=== PATIENT | male | born 1965 | race Caucasian/White ===

== ENCOUNTER 2021-08-09 20:05 | Emergency (ER) | payer OTHER ==
[~2021-08-09 20:05] MED LIST: BUPR150T2 PO; BUPR75 PO; Bactrim Ds Tab1 EACH PO; CHLO25 PO; DIAZ10 PO; ESOM20 PO; ESZO1 PO; HYDACE10B PO; HYDACE5 PO; IBUP600 PO; IBUP800 PO; LORA1 PO; METH10 PO; Naprosyn500 MG PO; OLAN10 PO; OLAN10A MM; PENVK500 PO; TRAM50 PO; TRIF2 PO; Valium5 MG PO; Zithromax250 MG PO; Zyprexa10 MG; Zyprexa20 MG PO
== END 2021-08-09 21:03 | disposition left against medical advice (07) ==
LOC: ER 20:05
DX: Z53.21 Procedure and treatment not carried out due to patient leaving prior to being seen by health care provider (principal)

== ENCOUNTER 2021-08-09 22:12 | Emergency (ER) | payer OTHER ==
[~2021-08-09] VITALS: Ht 182.9 cm; Wt 81.7 kg
== END 2021-08-10 01:20 | disposition home or self-care (01) ==
LOC: ER 22:12
DX: F10.129 Alcohol abuse with intoxication, unspecified (principal); Z88.8 Allergy status to other drugs, medicaments and biological substances; F20.9 Schizophrenia, unspecified; F17.210 Nicotine dependence, cigarettes, uncomplicated; Z79.899 Other long term (current) drug therapy
CPT/HCPCS: 99282

== ENCOUNTER 2021-08-10 18:09 | Emergency (ER) | payer OTHER | END 2021-08-10 18:23 | disposition left against medical advice (07) | LOC: ER 18:09 | DX: Z53.21 Procedure and treatment not carried out due to patient leaving prior to being seen by health care provider (principal) ==

== ENCOUNTER 2021-08-10 23:13 | Emergency (ER) | payer OTHER ==
[~2021-08-10] VITALS: Ht 182.9 cm; Wt 81.7 kg
== END 2021-08-11 00:59 | disposition left against medical advice (07) ==
LOC: ER 23:13
DX: Z53.21 Procedure and treatment not carried out due to patient leaving prior to being seen by health care provider (principal)

== ENCOUNTER 2021-08-11 05:51 | Emergency (ER) | payer OTHER ==
[~2021-08-11] VITALS: Ht 182.9 cm; Wt 68.0 kg
== END 2021-08-11 06:43 | disposition home or self-care (01) ==
LOC: ER 05:51
DX: F10.10 Alcohol abuse, uncomplicated (principal); F17.210 Nicotine dependence, cigarettes, uncomplicated
CPT/HCPCS: 99284

== ENCOUNTER → 2024-05-06 | Outpatient (CLI) | payer OTHER ==
[2024-05-08 12:21] LABS: Stool Occult Bld Immuno 1 Negative (NEGATIVE)
== END | disposition home or self-care (01) ==
LOC: LAB EV 12:00
PROVIDERS: Family Medicine
DX: Z12.11 Encounter for screening for malignant neoplasm of colon (principal)
CPT/HCPCS: G0328

== ENCOUNTER 2024-06-14 10:34 | Emergency (ER) | payer OTHER ==
[~2024-06-14] VITALS: Ht 182.9 cm; Wt 108.9 kg
[2024-06-14 10:52] VITALS: BP 137/86
[2024-06-14] MEDS ORDERED: Seroquel Xr50 MG PO (10:55)
[2024-06-14] MEDS ORDERED: MIRTAZAPINE7.5 M1 PO (10:56)
[2024-06-14] MEDS ORDERED: Lidocaine 4% 1 Patch TOP ONE (11:20)
[2024-06-14] MEDS ORDERED: Ketorolac Tromethamine 30mg Vial IM ONE (11:20)
[2024-06-14] MEDS ORDERED: Methocarbamol 500 MG Tab PO ONE (11:20)
[2024-06-14] MEDS ORDERED: IBUP800 PO (11:20)
[2024-06-14] MEDS ORDERED: LIDO700A20 TOP (11:20)
[2024-06-14] MEDS ORDERED: Robaxin750 MG PO (11:20)
== END 2024-06-14 11:30 | disposition home or self-care (01) ==
LOC: ER 10:34
DX: M54.50 Low back pain, unspecified (principal); Z88.8 Allergy status to other drugs, medicaments and biological substances; Z79.899 Other long term (current) drug therapy; F17.210 Nicotine dependence, cigarettes, uncomplicated
CPT/HCPCS: 96372; 99283-25; A9270; J1885

== ENCOUNTER → 2024-10-20 | Outpatient (CLI) | payer OTHER ==
[~2024-10-20] MED LIST changes: +LIDO700A20 TOP; +MIRTAZAPINE7.5 M1 PO; +Robaxin750 MG PO; +Seroquel Xr50 MG PO
== END | disposition home or self-care (01) ==
LOC: LAB SHORT 16:34 → LAB 16:34
DX: N40.2 Nodular prostate without lower urinary tract symptoms (principal); R97.20 Elevated prostate specific antigen [PSA]
CPT/HCPCS: 87086

== ENCOUNTER 2024-11-07 12:51 | Emergency (ER) | payer OTHER ==
[~2024-11-07] VITALS: Ht 170.2 cm; Wt 104.3 kg
[2024-11-07 13:49] VITALS: BP 122/92
[2024-11-07 14:16] LABS: BASOPHILS ABSOLUTE AUTO 0.08 K/mm3 (0.00-0.23); BASOPHILS PERCENT AUTO 1 % (0-2); EOSINOPHILS PERCENT AUTO 4 % (0-6); Hematocrit 44.5 % (37.0-53.0); Hemoglobin 15.7 g/dL (13.5-17.5); IMMATURE GRAN ABSOLUTE AUTO 0.03 K/mm3 (0.00-0.10); IMMATURE GRAN PERCENT AUTO 0 % (0-1); LYMPHOCYTES ABSOLUTE AUTO 2.25 K/mm3 (0.84-5.20); LYMPHOCYTES PERCENT AUTO 27 % (21-46); MONOCYTES ABSOLUTE AUTO 0.47 K/mm3 (0.16-1.47); MONOCYTES PERCENT AUTO 6 % (4-13); Mean Corpuscular HGB Conc 35.3 g/dL (31.5-36.5); Mean Corpuscular Volume 88 fL (80-100); Mean Platelet Volume 11.5 fL (9.1-12.4); NEUTROPHILS ABSOLUTE AUTO 5.32 K/mm3 (1.96-9.15); NEUTROPHILS PERCENT AUTO 63 % (41-73); Platelet Count 123 K/mm3 (150-400); RDW Coefficient Variation 13.3 % (11.7-14.2); RDW Standard Deviation 43.1 fL (35.1-46.3); Red Blood Cell Count 5.07 M/mm3 (4.30-5.90); White Blood Cell Count 8.45 K/mm3 (4.00-11.30)
[2024-11-07 14:33] LABS: Albumin, Blood 3.8 g/dL (3.4-5.0); Albumin/Globulin Ratio 0.9 (0.8-1.8); Bilirubin, Total 0.5 mg/dL (0.1-1.0); Bun/Creatinine Ratio 12.5 (12.0-20.0); Calcium, Blood 9.5 mg/dL (8.5-10.1); Creatinine, Blood 0.72 mg/dL (0.60-1.20); Globulin, Blood 4.2 g/dL (2.2-4.0); Potassium, Blood 3.6 mmol/L (3.5-5.5)
== END 2024-11-07 14:31 | disposition left against medical advice (07) ==
LOC: ER 12:51
PROVIDERS: Physician Assistant
DX: R07.9 Chest pain, unspecified (principal); Z53.21 Procedure and treatment not carried out due to patient leaving prior to being seen by health care provider
CPT/HCPCS: 80053; 83690; 84484; 85025; 93005; 93010

== ENCOUNTER → 2025-01-27 | Outpatient (CLI) | payer OTHER ==
[2025-01-27 16:18] LABS: BASOPHILS ABSOLUTE AUTO 0.08 K/mm3 (0.00-0.23); BASOPHILS PERCENT AUTO 1 % (0-2); EOSINOPHILS ABSOLUTE AUTO 0.32 K/mm3 (0.00-0.68); EOSINOPHILS PERCENT AUTO 3 % (0-6); Hematocrit 43.5 % (37.0-53.0); Hemoglobin 15.1 g/dL (13.5-17.5); IMMATURE GRAN ABSOLUTE AUTO 0.04 K/mm3 (0.00-0.10); IMMATURE GRAN PERCENT AUTO 0 % (0-1); LYMPHOCYTES ABSOLUTE AUTO 2.41 K/mm3 (0.84-5.20); LYMPHOCYTES PERCENT AUTO 24 % (21-46); MONOCYTES ABSOLUTE AUTO 0.68 K/mm3 (0.16-1.47); MONOCYTES PERCENT AUTO 7 % (4-13); Mean Corpuscular HGB 29.8 pg (26.0-34.0); Mean Corpuscular HGB Conc 34.7 g/dL (31.5-36.5); Mean Corpuscular Volume 86 fL (80-100); Mean Platelet Volume 11.2 fL (9.1-12.4); NEUTROPHILS ABSOLUTE AUTO 6.62 K/mm3 (1.96-9.15); NEUTROPHILS PERCENT AUTO 65 % (41-73); Platelet Count 129 K/mm3 (150-400); RDW Coefficient Variation 13.8 % (11.7-14.2); RDW Standard Deviation 42.7 fL (35.1-46.3); Red Blood Cell Count 5.07 M/mm3 (4.30-5.90); White Blood Cell Count 10.15 K/mm3 (4.00-11.30)
[2025-01-27 16:26] LABS: Albumin, Blood 3.9 g/dL (3.4-5.0); Bilirubin, Total 0.6 mg/dL (0.1-1.0); Bun/Creatinine Ratio 10.6 (12.0-20.0); Calcium, Blood 8.8 mg/dL (8.5-10.1); Creatinine, Blood 0.94 mg/dL (0.60-1.20); Globulin, Blood 4.1 g/dL (2.2-4.0); Potassium, Blood 3.3 mmol/L (3.5-5.5)
== END ==
LOC: LAB SHORT 16:10 → LAB 16:10
PROVIDERS: Physician Assistant
DX: R10.9 Unspecified abdominal pain (principal)
CPT/HCPCS: 80053; 83690; 85025

== ENCOUNTER 2025-02-25 00:52 | Inpatient (IN) | payer OTHER ==
[~2025-02-25] VITALS: Ht 172.7 cm; Wt 103.6 kg
[2025-02-25] VITALS (22 sets, daily range): BP systolic 102–179; BP diastolic 63–98
[2025-02-25 02:10] LABS: BASOPHILS ABSOLUTE AUTO 0.05 K/mm3 (0.00-0.23); BASOPHILS PERCENT AUTO 0 % (0-2); EOSINOPHILS ABSOLUTE AUTO 0.17 K/mm3 (0.00-0.68); EOSINOPHILS PERCENT AUTO 1 % (0-6); Hematocrit 45.1 % (37.0-53.0); Hemoglobin 15.7 g/dL (13.5-17.5); IMMATURE GRAN ABSOLUTE AUTO 0.08 K/mm3 (0.00-0.10); IMMATURE GRAN PERCENT AUTO 1 % (0-1); LYMPHOCYTES ABSOLUTE AUTO 1.29 K/mm3 (0.84-5.20); LYMPHOCYTES PERCENT AUTO 10 % (21-46); MONOCYTES ABSOLUTE AUTO 0.57 K/mm3 (0.16-1.47); MONOCYTES PERCENT AUTO 5 % (4-13); Mean Corpuscular HGB 29.6 pg (26.0-34.0); Mean Corpuscular HGB Conc 34.8 g/dL (31.5-36.5); Mean Corpuscular Volume 85 fL (80-100); Mean Platelet Volume 10.8 fL (9.1-12.4); NEUTROPHILS ABSOLUTE AUTO 10.55 K/mm3 (1.96-9.15); NEUTROPHILS PERCENT AUTO 83 % (41-73); Platelet Count 114 K/mm3 (150-400); RDW Coefficient Variation 13.9 % (11.7-14.2); RDW Standard Deviation 42.7 fL (35.1-46.3); Red Blood Cell Count 5.31 M/mm3 (4.30-5.90); White Blood Cell Count 12.71 K/mm3 (4.00-11.30)
[2025-02-25 02:37] LABS: Albumin, Blood 3.7 g/dL (3.4-5.0); Albumin/Globulin Ratio 0.8 (0.8-1.8); Bun/Creatinine Ratio 12.6 (12.0-20.0); Calcium, Blood 8.5 mg/dL (8.5-10.1); Creatinine, Blood 0.96 mg/dL (0.60-1.20); Globulin, Blood 4.5 g/dL (2.2-4.0); Potassium, Blood 3.8 mmol/L (3.5-5.5); Total Protein, Blood 8.2 g/dL (6.4-8.2)
[2025-02-25] MEDS ORDERED: NS 1,000 ML IV SCH ×2 (04:55→07:50)
[2025-02-25] MEDS ORDERED: FentaNYL Citrate 50 MCG/ML 2 ML Injection IV PRN ×3 (04:55→11:40)
[2025-02-25] MEDS ORDERED: Ondansetron HCl 2 MG / ML 2ML Vial IV ONE (04:55)
[2025-02-25 05:06] LABS: Source, Urine Clean Catch
[2025-02-25 05:26] LABS: Appearance, Urine Clear (Clear); Blood, Urine 2+ (Neg); Color, Urine Amber (P-Yellow); Glucose Qualitative, Urine 4+ (Neg); Ketones, Urine 3+ (Neg); Leukocyte Esterase, Urine 1+ (Neg); Nitrite, Urine Pos (Neg); Protein, Urine 3+ (Neg); Urobilinogen, Urine 1+ (Normal)
[2025-02-25 05:27] LABS: Bilirubin, Urine 1+ (Neg)
[2025-02-25 05:33] LABS: Bacteria Many /hpf; Mucus Light (0-Heavy); Squamous Epithelial Cells Many /hpf (Few)
[2025-02-25] MEDS ORDERED: Ampicillin Sod/Sulbactam Sod 3 GM in NS 100 ML IV ONE (05:35)
[2025-02-25] MEDS ORDERED: LORazepam 2 MG/ML 1ML Injection IV ONE (07:40)
[2025-02-25] MEDS ORDERED: Ondansetron HCl 2 MG / ML 2ML Vial IV PRN ×2 (07:50→11:45)
[2025-02-25] MEDS ORDERED: Morphine Sulfate 4 MG/1 ML Injection IV PRN (10:10)
[2025-02-25] MEDS ORDERED: Lactated Ringer's 1,000 ML IV SCH (10:20)
--- NOTE | 2025-02-25 11:05 | NUR ---
FLUSHED 18G RAC IV SITE WITH 10NS/PATENT.
[2025-02-25] MEDS ORDERED: Ampicillin Sod/Sulbactam Sod 3 GM ONE (11:15)
[2025-02-25] MEDS ORDERED: OLAN10 PO (11:20)
[2025-02-25] MEDS ORDERED: Bupivacaine 0.5% HCl 5 MG/ML 30MLVIAL ONE (11:24)
[2025-02-25] MEDS ORDERED: Ipratropium/Albuterol SulF 2.5-0.5MG/3 ML Amp ONE (11:24)
[2025-02-25] MEDS ORDERED: Ipratropium/Albuterol SulF 2.5-0.5MG/3 ML Amp INH ONE (11:25)
[2025-02-25] MEDS ORDERED: FentaNYL Citrate 50 MCG/ML 5 ML Injection ONE (11:34)
[2025-02-25] MEDS ORDERED: Rocuronium Bromide 10 MG/ML 5ML Injection IV ONE (11:34)
[2025-02-25] MEDS ORDERED: propofoL 20 ML IV ONE (11:34)
[2025-02-25] MEDS ORDERED: HYDROmorphone HCl/Pf 1MG SYR IV PRN ×2 (11:35→11:40)
[2025-02-25] MEDS ORDERED: Ondansetron HCl 2 MG / ML 2ML Vial ONE (11:37)
[2025-02-25] MEDS ORDERED: Ketorolac Tromethamine 30mg Vial ONE (11:37)
[2025-02-25] MEDS ORDERED: Metoclopramide HCl 5MG / ML 2ML Vial ONE (11:37)
[2025-02-25] MEDS ORDERED: Albuterol 2.5 MG/3 ML VIAL INH PRN (11:40)
[2025-02-25] MEDS ORDERED: Metoclopramide HCl 5MG / ML 2ML Vial IV PRN (11:40)
[2025-02-25] MEDS ORDERED: LORazepam 2 MG/ML 1ML Injection IV PRN (11:40)
[2025-02-25] MEDS ORDERED: Labetalol HCL 5 MG/ML 4ML Injection (Single Dose) IV PRN (11:40)
[2025-02-25] MEDS ORDERED: Atropine Sulfate 0.1 MG/ML 10ML SYR IV PRN (11:45)
[2025-02-25] MEDS ORDERED: Ketorolac Tromethamine 15mg Vial IV PRN (11:55)
[2025-02-25] MEDS ORDERED: Ampicillin Sod/Sulbactam Sod 3 GM in NS 100 ML IV SCH (12:00)
[2025-02-25] MEDS ORDERED: HYDROmorphone HCl/Pf 1MG SYR ONE (13:24)
[2025-02-25] MEDS ORDERED: HYDROcodone 5-APAP 325 TAB PO PRN (13:40)
[2025-02-25] MEDS ORDERED: Acetaminophen 650 MG Supp PR ONE (14:05)
[2025-02-25] MEDS ORDERED: Folic Acid 1 MG in NS 50 ML IV SCH (16:00)
[2025-02-25] MEDS ORDERED: Thiamine HCl 100 MG in NS 50 ML IV SCH (16:00)
--- NOTE | 2025-02-25 18:45 | NUR ---
Summary: Patient POD 0 for lap appendectomy. Arrived to the unit at approximately 1500 with no complaints of pain. Abdominal surgical sites include 3 laproscopic sites with gauze and tegaderm covering, 1 SAMMY drain on left side of abdomen, draining well-serosanguinous. Pain managed, per meds in emar. Sinus tachycardia, lung sounds clear to auscultation, hypoactive bowel sounds with moderate distention. Has not urinated in 4 hours, attempted x3 to get up to bedside with urinal. Education given on incentive spirometer with demonstration done by patient.
--- NOTE | 2025-02-25 19:34 | NUR ---
SUMMARY: PT IS POD0 LAP APPY. SURGICAL SITE INTACT. INCISION AT [facility] HAS SS DRAINAGE BUT IS DRY. SAMMY HAS NEEDED TO BE EMPTIED MULTIPLE TIMES, SEE CHARTING. THERE IS DRAINAGE AROUND SAMMY INSERTION SITE NOTED SAMMY CONDE COMPRESSED. BEULAH BUSTOS AWARE. PT IS ANSWERING QUESTIONS AND FOLLOWING COMMANDS. AWAITING POST OP VOID, BLADDER SCAN PRN. ANTIBIOTICS INFUSED AND PAIN APPEARS TO BE WELL MANAGED. VSS AND PT USING CALL LIGHT. BED ALARM ON FOR SAFETY, NO SIGNS OF ETOH WITHDRAWAL AT THIS TIME. REPORT PASSED TO BEULAH BUSTOS BY ESPERANZA WALLACE STUDENT.
[2025-02-25] MEDS ORDERED: Lactobacil 2-S.Thermo-Bifido 1 1 Cap PO SCH (21:00)
--- NOTE | 2025-02-25 21:22 | NUR ---
SAMMY DRAIN: PER REP PT GOT UP OOB AND DRAIN WAS PULLED. DRAIN NO LONGER HOLDING SX, SUTURES VISIBLE ON MID LENGTH OF TUBING. DR MARK UPDATED, NO NEW ORDERS. PRIMARY RN AWARE.
--- NOTE | 2025-02-25 23:00 | NUR ---
UPDATE SAMMY 6X9 EXU DRY DRESSING SATURATED AND LEAKING SS FLUID ONTO GOWN/LOWERY PAD AT THIS TIME. DRESSING APPLIED TO REINFORCE PRIMARY PLACED DURING SURGERY TODAY. EXU DRY REMOVED, SKIN SURROUNDING CLEANS WITH NS AND GAUZE, THEN REPLACED WITH NEW 6X9 EXU DRY AND MEDIPORT TAPE TO SECURE IN PLACE. NEW GOWN AND LOWERY PAD REPLACED. 2X2'S PLACED UNDER EXU DRY AGAINST TUBING AT INSERTION TO HELP WITH DRAINAGE. SAMMY NONCOMPRESSABLE, NO DRAINAGE IN BULB- PROVIDER AWARE. LAP ABD INCISIONS CDI, NO DRAINAGE OR REDNESS NOTED. UMBILICAL DRESSING, GAUZE AND TEGADERM, IN PLACE WITH NO CHANGE TO SS DRAINAGE. ABD MORE DISTENDED. PT STANDS AT BEDSIDE TO VOID IN URINAL WITH ASSISTANCE. DECLINES AMBULATION. IVF AND ABX INFUSING PER ORDERS. MEDICATED PER EMAR FOR INCREASED ABD PAIN. JAIME CL PO INTAKE, DENIES N/V. HAS CALL LIGHT AND ABLE TO MAKE NEEDS KNOWN. BED ALARM ON FOR SAFETY
[2025-02-25] MEDS ORDERED: OLANZapine 10 MG Tab PO SCH (23:05)
[2025-02-25] MEDS ORDERED: QUEtiapine Fumarate 300 MG Tab PO SCH (23:05)
[2025-02-26 00:08] VITALS: BP 116/83
[2025-02-26 03:53] VITALS: BP 110/73
--- NOTE | 2025-02-26 04:00 | NUR ---
UPDATE 100ML OF GREEN EMESIS NOTED. PT MEDICATED PER EMAR FOR N/V POST PO PAIN MEDICATION ADMINISTRATION. COOL CLOTH AND ICE WATER PROVIDED. IVF INFUSING PER ORDERS. PT REPORTS FEELING MORE DISTENDED AND SWOLLEN; INCREASED ABD DISTENTION NOTED. LUNG SOUNDS CL, DEMINISHED AT BASES. EXU DRY DRESSING TO SAMMY INSERTION CDI. IS A/OX4 WITH VSS ON 1L NC. DENIES SOB, CP, OR PRESSURE. PT DENIES ADDITIONAL NEEDS. HAS CALL LIGHT IN REACH AND ABLE TO MAKE NEEDS KNOWN.
[2025-02-26 06:43] LABS: Hematocrit 39.7 % (37.0-53.0); Hemoglobin 13.5 g/dL (13.5-17.5); Mean Corpuscular HGB 29.5 pg (26.0-34.0); Mean Corpuscular Volume 87 fL (80-100); Mean Platelet Volume 11.6 fL (9.1-12.4); Platelet Count 78 K/mm3 (150-400); RDW Coefficient Variation 14.4 % (11.7-14.2); RDW Standard Deviation 46.2 fL (35.1-46.3); Red Blood Cell Count 4.57 M/mm3 (4.30-5.90); White Blood Cell Count 8.07 K/mm3 (4.00-11.30)
[2025-02-26 07:01] LABS: Bun/Creatinine Ratio 9.7 (12.0-20.0); Calcium, Blood 7.8 mg/dL (8.5-10.1); Creatinine, Blood 0.83 mg/dL (0.60-1.20); Potassium, Blood 3.9 mmol/L (3.5-5.5)
[2025-02-26 07:07] LABS: BAND PERCENT MAN 10 % (0-8); BASOPHILS ABSOLUTE MAN 0.08 K/mm3 (0.00-0.23); BASOPHILS PERCENT MAN 1 % (0-2); EOSINOPHILS PERCENT MAN 0 % (0-6); LYMPHOCYTES ABSOLUTE MAN 0.64 K/mm3 (0.84-5.20); LYMPHOCYTES PERCENT MAN 8 % (21-46); MONOCYTES ABSOLUTE MAN 0.24 K/mm3 (0.16-1.47); MONOCYTES PERCENT MAN 3 % (4-13); SEG NEUTROPHILS PERCENT MAN 78 % (41-73); TOTAL CELLS COUNTED 100
[2025-02-26 07:41] VITALS: BP 139/96
[2025-02-26] MEDS ORDERED: Calcium Carbonate 500 MG Tab Chew PO PRN (12:30)
[2025-02-26] MEDS ORDERED: Enoxaparin 40 MG/0.4 ML SYR SC SCH (14:00)
[2025-02-26 14:31] VITALS: BP 105/77
--- NOTE | 2025-02-26 15:56 | NUR ---
SHIFT SUMMARY POD [address] MARK REMOVED SAMMY DRAIN AND CHANGED GAUZE DRESSINGS TO ABD. HAVE REMAINED CDI. ABD STILL MODERATELY DISTENDED. DENIES FLATUS. SLOWLY JAIME CLEAR LIQS, BUT DOES GET INTERMITTENTLY NAUSEATED. NO EMESIS THIS SHIFT. AMBULATING HALLWAY X2 WITH SBA. 2 PAIN PILLS FOR PAIN CONTROL. PT CAN BE GROGGY AT TIMES, BUT OTHERWISE ORIENTED X4. USES CALL LIGHT APPROPRIATELY.
[2025-02-26 19:32] VITALS: BP 130/91
[2025-02-26 20:35] LABS: Base Excess Venous 5.3 mmol/L; Bicarbonate Venous 28.5 mmol/L (24.0-30.0); PCO2 Venous 43.8 mmHg (38-42); pH Blood Venous 7.44 (7.34-7.37)
[2025-02-26 23:37] VITALS: BP 134/83
[2025-02-27] MEDS ORDERED: Acetaminophen 325 MG TABLET PO PRN (02:10)
[2025-02-27 02:29] LABS: PCO2 Venous 34.7 mmHg (38-42); pH Blood Venous 7.52 (7.34-7.37)
--- NOTE | 2025-02-27 02:36 | NUR ---
PT BECOMING A BIT ALTERED AND SLURRING SPEECH A BIT MORE. EQUAL ARROW POINT ATTACHER AND NO FACIAL DEFICITS NOTED. PT STILL ABLE TO STATE HIS NAME, , MONTH AND YEAR, AND KNOWS HE'S AT [facility], HIS RESPONSES ARE JUST A BIT SLOWER WITH CHANGES IN SPEECH. PT WAS ON PHONE WITH HIS ON SPEAKER AND SHE ALSO STATED HIS SPEECH IS MORE SLURRED. DAY SHIFT RN MENTIONED THAT PT HAD PROGRESSIVELY ADVANCED IN THIS WAY THROUGH THE DAY. VBG ORDERED AT THAT TIME. CALLED DR MARVEL CONDE TO UPDATE HIM ON PT'S STATUS, RECEIVED ORDER FOR REPEAT VBG WELL TYLENOL FOR PAIN AND PEPCID FOR HEARTBURN WHICH IS PT'S MAIN COMPLAINT RIGHT NOW. THESE NEW SYMPTOMS DID SEEM TO INCREASE AFTER PT RECEIVED HIS SCHEDULED ZYPREXA AND SEROQUEL HOWEVER PT AND HIS DID SAY THAT HE TAKES THOSE NORMALLY EACH DAY WITH NO ISSUES AND PT HAS NOT HAD ANY NARCOTICS SINCE EARLY SUNDAY MORNING. WILL CONTINUE TO MONITOR.
[2025-02-27 02:49] LABS: BASOPHILS ABSOLUTE AUTO 0.03 K/mm3 (0.00-0.23); BASOPHILS PERCENT AUTO 0 % (0-2); EOSINOPHILS ABSOLUTE AUTO 0.06 K/mm3 (0.00-0.68); EOSINOPHILS PERCENT AUTO 1 % (0-6); Hematocrit 37.2 % (37.0-53.0); Hemoglobin 12.7 g/dL (13.5-17.5); IMMATURE GRAN PERCENT AUTO 1 % (0-1); LYMPHOCYTES ABSOLUTE AUTO 0.53 K/mm3 (0.84-5.20); LYMPHOCYTES PERCENT AUTO 7 % (21-46); MONOCYTES ABSOLUTE AUTO 0.42 K/mm3 (0.16-1.47); MONOCYTES PERCENT AUTO 5 % (4-13); Mean Corpuscular HGB 29.7 pg (26.0-34.0); Mean Corpuscular HGB Conc 34.1 g/dL (31.5-36.5); Mean Corpuscular Volume 87 fL (80-100); NEUTROPHILS ABSOLUTE AUTO 7.01 K/mm3 (1.96-9.15); NEUTROPHILS PERCENT AUTO 86 % (41-73); Platelet Count 75 K/mm3 (150-400); RDW Coefficient Variation 14.3 % (11.7-14.2); RDW Standard Deviation 45.8 fL (35.1-46.3); Red Blood Cell Count 4.28 M/mm3 (4.30-5.90); White Blood Cell Count 8.15 K/mm3 (4.00-11.30)
[2025-02-27] MEDS ORDERED: Famotidine 20 MG Tab PO SCH (03:00)
[2025-02-27 03:05] LABS: Bun/Creatinine Ratio 11.5 (12.0-20.0); Creatinine, Blood 0.78 mg/dL (0.60-1.20); Potassium, Blood 3.5 mmol/L (3.5-5.5)
--- NOTE | 2025-02-27 03:08 | NUR ---
NOTIFIED DR GRIER OF VBG RESULTS. NO ADDITIONAL ORDERS AT THIS TIME AND SAID JUST CONTINUE TO MONITOR AND IF SYMPTOMS INCREASE TO UPDATE HIM AT THAT TIME. PT'S BROUGHT IN HOME MEDS AND STATED HE TAKES PANTOPRAZOLE EVERY MORNING SO RECEIVED ORDER TO START THAT IN THE MORNING PT CONTINUES TO COMPLAIN OF HEARTBURN.
[2025-02-27] MEDS ORDERED: PANT20 PO (04:11)
[2025-02-27 04:43] VITALS: BP 155/95
--- NOTE | 2025-02-27 05:11 | NUR ---
BELT BUCKLE MAKER SUMMARY PT HAS CONTINUED TO BE A BIT OUT OF IT TONIGHT WITH SOME SLIGHT INCREASE IN SLURRED SPEECH, SEE PREVIOUS NOTES. PT HAS GOTTEN OUT OF BED A COUPLE TIMES AND HAS VOIDED BUT STILL DENIES PASSING GAS OR HAVING A BM. PT DENIES WANTING TO TAKE NARCOTICS FOR ABD PAIN BECAUSE HE SAID HE FEELS IT HAS CONTRIBUTED TO HIS CONFUSION TODAY. GOT AN ORDER FOR TYLENOL WELL FOR PANTOPRAZOLE AND PEPCID FROM HOSPITALIST PT HAS BEEN MOSTLY COMPLAINING OF ACID REFLUX. MEDICATED FOR NAUSEA ONCE THIS MORNING BUT PT NEVER ACTUALLY VOMITED, JUST A BIT OF SPUTUM WITH SOME OF THE CRANBERRY JUICE HE HAD EARLIER. VITALS HAVE BEEN STABLE. DR GRIER AWARE OF CHANGES MENTIONED ABOVE AND WANTS TO CONTINUE TO MONITOR AT THIS POINT UNLESS SYMPTOMS BECOME WORSE.
[2025-02-27] MEDS ORDERED: Pantoprazole Sodium 20 MG Tab PO SCH (06:00)
[2025-02-27 07:29] VITALS: BP 149/84
[2025-02-27] MEDS ORDERED: Bisacodyl 10 MG Supp PR PRN (08:15)
[2025-02-27] MEDS ORDERED: Thiamine HCl 100 MG Tab PO SCH (09:00)
[2025-02-27] MEDS ORDERED: Folic Acid 1 MG TAB PO SCH (09:00)
[2025-02-27] MEDS ORDERED: TPN Consult Notification XX ONE (11:00)
[2025-02-27] MEDS ORDERED: Ketorolac Tromethamine 15mg Vial IV PRN (11:10)
[2025-02-27 14:51] VITALS: BP 118/81
[2025-02-27] MEDS ORDERED: Parenteral Electolytes 40 ML,Potassium Phosphate Dibasic 30 MM,Multivitamins 10 ML,Thia... IV SCH (17:00)
--- NOTE | 2025-02-27 17:10 | NUR ---
SHIFT SUMMARY POD 2 LAP APPY. LAP SITES TO ABD ARE CDI. NGT PLACED THIS MORNING TO LIS. DARK GREEN/BROWN DRAINAGE IN CANISTER. PT STILL MODERATELY TO SEVERELY DISTENDED, BUT DOES REPORT FEELING LESS PRESSURE IN HIS ABD, LESS NASUEATED, AND NOT PAINFUL. DENIES FLATUS. BTS STILL HYPOACTIVE. NPO WITH OCCASSIONAL ICE CHIPS. TORADOL GIVEN X1 FOR PAIN CONTROL. UP TO RESTROOM WITH SBA AND ALSO SHOWERED TODAY. CONT IVF + ABX AND PLANNING TO START PPN PER ORDERS. PT LESS GROGGY THIS AFTERNOON AND THE SPOUSE REPORTED THAT HE APPEARED MUCH BETTER AND MORE COMFORTABLE. CALL LIGHT WITHIN REACH.
--- NOTE | 2025-02-27 18:14 | NUR ---
AGREE WITH TAPE STRINGER DOCUMENTATION.
[2025-02-27 19:21] VITALS: BP 126/88
--- NOTE | 2025-02-27 20:57 | NUR ---
Pt declined shower as they had already showed today. Pt also declined oral care, even after the importance of oral care had be explained.
--- NOTE | 2025-02-27 23:25 | NUR ---
PROGRESS NOTE. THIS RN CALLED TO PT ROOM BY PT AND BLOCKMAN. PT REPORTED SX OF "RACING HEART". HEART RATE 91 BPM, BP 127/91, OTHER VSS. PT VERBALIZED FEELINGS OF ANXIETY AND FRUSTRATION REGARDING NPO STATUS. THIS RN NOTED PT EXIBITING SX OF AGITATION WELL. PT DENIES SOB OR CHEST PAIN/PRESSURE WHEN ASKED. PT VERBALIZED THAT HE HAS BEEN OFF PSYCH MEDS FOR HIS SCHITZOPRENIA D/T NPO STATUS. PT STATES HE HAS A HX OF ANXIETY AND HEART RACING SX ARE SAME PAST ANXIETY EPISODES. EDUCATED PT ON NOTIFYING STAFF IF SX WORSEN OR DO NOT IMPROVE. DISCUSSED WITH WASTE WATER WORKER JOSE GARCÍA. WILL CALL HOSPITALIST WELL.
[2025-02-27 23:26] VITALS: BP 127/91
--- NOTE | 2025-02-27 23:56 | NUR ---
Pt requested to talk to nurse about increase of heart rate and breathing, RN notified, RN in Room following up.
[2025-02-28] MEDS ORDERED: OLANZapine 10 MG Vial IM PRN (00:40)
--- NOTE | 2025-02-28 00:45 | NUR ---
CALL TO HOSPITALIST. CALL PLACED TO HOSPITALIST REGARDING MULTIPLE CONCERNS FOR PT. DISCUSSED PT REPORTED "HEART RACING", AGITATION, AND ANXIETY SX, DISCUSSED FLUID DEFICIT ON I&OS, DISCUSSED REDNESS ON LEFT SIDE ABDOMEN MARKED WITH MARGINS. DISCUSSED PT BEING OFF PSYCH MEDICATIONS D/T NPO STATUS AND NG TUBE. NEW ORDERS RECEIVED FOR ZYPREXA, INCREASE FLUID RATE TO 150ML/HR AND EKG PRN IF HEART RACING SX RETURN.
[2025-02-28] MEDS ORDERED: NS 1,000 ML IV SCH (01:00)
[2025-02-28 02:51] VITALS: BP 121/89
[2025-02-28 04:33] LABS: BASOPHILS ABSOLUTE AUTO 0.04 K/mm3 (0.00-0.23); BASOPHILS PERCENT AUTO 0 % (0-2); EOSINOPHILS ABSOLUTE AUTO 0.41 K/mm3 (0.00-0.68); EOSINOPHILS PERCENT AUTO 4 % (0-6); Hematocrit 35.6 % (37.0-53.0); IMMATURE GRAN ABSOLUTE AUTO 0.09 K/mm3 (0.00-0.10); IMMATURE GRAN PERCENT AUTO 1 % (0-1); LYMPHOCYTES ABSOLUTE AUTO 1.16 K/mm3 (0.84-5.20); LYMPHOCYTES PERCENT AUTO 12 % (21-46); MONOCYTES ABSOLUTE AUTO 0.59 K/mm3 (0.16-1.47); MONOCYTES PERCENT AUTO 6 % (4-13); Mean Corpuscular HGB 29.5 pg (26.0-34.0); Mean Corpuscular HGB Conc 33.7 g/dL (31.5-36.5); Mean Corpuscular Volume 88 fL (80-100); Mean Platelet Volume 11.5 fL (9.1-12.4); NEUTROPHILS ABSOLUTE AUTO 7.72 K/mm3 (1.96-9.15); NEUTROPHILS PERCENT AUTO 77 % (41-73); Platelet Count 100 K/mm3 (150-400); RDW Coefficient Variation 14.3 % (11.7-14.2); RDW Standard Deviation 45.9 fL (35.1-46.3); Red Blood Cell Count 4.07 M/mm3 (4.30-5.90); White Blood Cell Count 10.01 K/mm3 (4.00-11.30)
[2025-02-28 04:52] LABS: Anion Gap 9 mmol/L (3-11); Blood Urea Nitrogen 11 mg/dL (8-24); Bun/Creatinine Ratio 15.2 (12.0-20.0); CO2, Blood 25 mmol/L (21-32); Calcium, Blood 7.9 mg/dL (8.5-10.1); Chloride, Blood 106 mmol/L (98-108); Creatinine, Blood 0.72 mg/dL (0.60-1.20); Glomerular Filtration Rate 105 (60-); Glucose, Blood 118 mg/dL (70-99); Magnesium, Blood 2.1 mg/dL (1.6-2.4); Phosphorus, Blood 1.6 mg/dL (2.5-4.9); Potassium, Blood 3.4 mmol/L (3.5-5.5); Sodium, Blood 137 mmol/L (136-145); Triglycerides 187 mg/dL (30-160)
[2025-02-28] MEDS ORDERED: Pantoprazole Sodium 40 MG Injection IV SCH (06:00)
--- NOTE | 2025-02-28 06:19 | NUR ---
SHIFT SUMMARY NOC. PT POD 3 FOR RUPTURED LAP APPY. PT LAP SITES X4 ARE C/D/I, UMBILICAL SITE DRESSING REPLACED D/T PEELING OFF. NOTED REDNESS ON LEFT SIDE ABDOMEN, MARKED AT START OF SHIFT AND RECEEDING T/O SHIFT, HOSPITALIST NOTIFIED. PT DENIES ITCHING OR PAIN, REDNESS IS NOT RAISED. PT'S PAIN CONTROLLED WITH LIMITED DOSES OF TORADOL, NOW COMPLETED. PT RECEIVED IM INJECTION OF ZYPREXA. PT REPORTED IMPROVEMENT OF ANXIETY AFTER INJECTION. DECREASED AGITATION NOTED BY THIS RN. INCREASED RATE OF NS 150 ML/HR STARTED THIS SHIFT. NG TUBE CONNECTED TO LIS WITH GREEN OUTPUT. PT VOIDING AND NPO ASIDE FROM SCANT QUANTITY OF ICE CHIPS FOR COMFORT. PT REPORTS PASSING GAS THIS SHIFT. CALL LIGHT IN REACH.
[2025-02-28 07:11] VITALS: BP 136/82
--- NOTE | 2025-02-28 08:20 | NUR ---
OFFERED BATH/SHOWER AND BED CHANGE.PATIENT STATED"NOT RIGHT NOW." THIS ZOOKEEPER STATED TO PATIENT. " CALL WHEN READY FOR SHOWER OR BATH."
[2025-02-28] MEDS ORDERED: Potassium Phosphate Dibasic 20 MM in Dextrose 5% 500 ML IV STA (10:28)
[2025-02-28] MEDS ORDERED: Ketorolac Tromethamine 15mg Vial IV PRN (10:30)
[2025-02-28] MEDS ORDERED: DIAZ5 PO (10:45)
[2025-02-28] MEDS ORDERED: NS 250 ML IV PRN (15:05)
--- NOTE | 2025-02-28 15:57 | NUR ---
summary PT WAS AGITATED T/O MORNING. REC'D ZYPREXA IM PER ORDERS AND AGITATION APPEARED TO DECREASE. PT'S REDNESS TO L SIDE/FLANK REPORTED TO DR GABRIEL. PT SAT UP IN CHAIR BRIEFLY THEN ASKED TO RETURN TO BED. BED ALARM ON FOR SAFETY DUE TO PT'S IMPULSIVENESS. RESTING ON R SIDE AT THIS TIME. REPORT GIVEN AND CARE TURNED OVER TO ESPERANZA BLANTON.
[2025-02-28] MEDS ORDERED: Parenteral Electolytes 40 ML,Potassium Phosphate Dibasic 30 MM,Multivitamins 10 ML,Thia... IV SCH (17:00)
[2025-02-28 17:06] VITALS: BP 135/87
[2025-02-28 19:32] VITALS: BP 123/89
--- NOTE | 2025-03-01 | NUR ---
PROGRESS NOTE. PT SET OFF BED ALARM AND HAD PULLED NG TUBE. PT REPORTED HE GOT TANGLED IN HIS CORDS AND THE TUBE WAS PULLED. PT DENIES N/V AND REPORTS FEELING BETTER NOW THAT TUBE IS OUT. PT PASSING GAS. ORDER RECEIVED FROM HOSPITALIST TO KEEP NG OUT UNLESS N/V OCCURS. EDUCATION PROVIDED TO PATIENT TO NOTIFY STAFF FOR N/V SYMPTOMS.
[2025-03-01 02:40] VITALS: BP 140/83
[2025-03-01 06:49] LABS: Magnesium, Blood 2.3 mg/dL (1.6-2.4); Phosphorus, Blood 3.1 mg/dL (2.5-4.9)
[2025-03-01 07:24] VITALS: BP 116/72
--- NOTE | 2025-03-01 07:56 | NUR ---
SHIFT SUMMARY NOC. PT POD 4 FOR RUPTURED LAP APPY. PT LAP SITES X4 ARE C/D/I. REDNESS ON LEFT SIDE ABDOMEN RECEEDING WITHIN MARGINS. PT DENIES N/V OR PAIN THIS SHIFT. PT MEDICATED X1 WITH IM ZYPREXA. NG TUBE PULLED BY PT THIS SHIFT. NO INCREASED DISTENSION NOTED AFTER REMOVAL. PT VOIDING URINE AND TOLERATING ICE CHIPS FOR COMFORT. PT INCONSISTENT WITH CALL LIGHT, SOMETIMES SETS OF BED ALARM, AND SOMETIMES CALLS APPROPRIATELY.
--- NOTE | 2025-03-01 10:13 | NUR ---
PT DENIES N/V, ABD SOFT/NON TENDER W/PALPATION, HAVING MULTIPLE BM, TOLERATING ICE CHIPS. PER DR NERY PINTO TO ADVANCE DIET TO CLEAR LIQUIDS. PT DR SPENCER PINTO TO SALINE LOCK IF ADVANCING DIET.
--- NOTE | 2025-03-01 10:23 | NUR ---
THIS WIRELESS SALES CONSULTANT ENCOURAGED PATIENT TO GET UP TO CHAIR FOR MEAL TIMES.OFFERED A WALK.OFFERED A SHOWER.
[2025-03-01] MEDS ORDERED: Potassium Chloride 20 MEQ TabCR PO ONE (11:00)
[2025-03-01 15:52] VITALS: BP 127/84
--- NOTE | 2025-03-01 16:49 | NUR ---
SHIFT NOTE PT RESTING QUIETLY. 5 LOOSE BM TODAY. HE IS TOLERATING FULL LIQUID DIET. NO NAUSEA OR ABD. CRAMPING. UP SBA FOR CORDS TO BATHROOM. BED ALARM ON. HE REQUESTED ZYPREXA ONCE TODAY. DR GABRIEL ASSESSED PT THIS MORNING. IV X2 WNL. ANTIBIOTICS PER ORDER. DENIED NEED FOR PAIN CONTROL THIS AFTERNOON. CARE ONGOING.
[2025-03-01 20:25] VITALS: BP 129/76
[2025-03-01 23:49] VITALS: BP 117/74
[2025-03-02 03:21] VITALS: BP 125/74
--- NOTE | 2025-03-02 04:28 | NUR ---
SHIFT SUMMARY POD5 LAP APPY. X4 LAP SITES ARE C/D/I. ABD REMAINS DISTENDED, PT ENDORSES FEELING SORE. PASSING FLATTUS, TOLLERATING PO INTAKE W/O N/V. PT SLEPT THE ENTIRE NIGHT, DENIES ANY NEED FOR PAIN MEDICATION. UTILIZED URINAL AT BEDSIDE OR AMBULATED TO THE BATHROOM W/SBA. OVERALL NO ACUTE EVENTS NOTED, PREVIOUS SHIFT RN REPORTS PT NEEDS ENCOURAGEMENT TO GET OOB T/O THE DAY, WILL PASS ONTO ONCOMING SHIFT. THE PATIENT IS CURRENTLY SLEEPING, IN NO DISTRESS, CALL LIGHT IN REACH.
[2025-03-02 05:44] LABS: Magnesium, Blood 2.1 mg/dL (1.6-2.4)
[2025-03-02 06:41] LABS: BASOPHILS PERCENT AUTO 1 % (0-2); EOSINOPHILS PERCENT AUTO 7 % (0-6); Hematocrit 38.7 % (37.0-53.0); Hemoglobin 13.4 g/dL (13.5-17.5); Mean Corpuscular HGB 29.7 pg (26.0-34.0); Mean Corpuscular HGB Conc 34.6 g/dL (31.5-36.5); Mean Corpuscular Volume 86 fL (80-100); Mean Platelet Volume 11.7 fL (9.1-12.4); Platelet Count 167 K/mm3 (150-400); RDW Coefficient Variation 14.5 % (11.7-14.2); RDW Standard Deviation 45.5 fL (35.1-46.3); Red Blood Cell Count 4.51 M/mm3 (4.30-5.90); White Blood Cell Count 9.28 K/mm3 (4.00-11.30)
[2025-03-02 06:43] LABS: IMMATURE GRAN ABSOLUTE AUTO 0.37 K/mm3 (0.00-0.10); IMMATURE GRAN PERCENT AUTO 4 % (0-1); LYMPHOCYTES PERCENT AUTO 26 % (21-46); MONOCYTES ABSOLUTE AUTO 0.86 K/mm3 (0.16-1.47); MONOCYTES PERCENT AUTO 9 % (4-13); NEUTROPHILS ABSOLUTE AUTO 4.95 K/mm3 (1.96-9.15); NEUTROPHILS PERCENT AUTO 53 % (41-73)
[2025-03-02 06:54] LABS: Bun/Creatinine Ratio 12.8 (12.0-20.0); Calcium, Blood 8.3 mg/dL (8.5-10.1); Creatinine, Blood 0.7 mg/dL (0.60-1.20); Potassium, Blood 3.8 mmol/L (3.5-5.5)
[2025-03-02 07:23] VITALS: BP 144/91
--- NOTE | 2025-03-02 15:50 | NUR ---
DISCHARGE SUMMARY PT STATES PAIN TOLERABLE LEVEL. PT A&O X4. PT TOLERATING DIET. PT DENIES N&V. PT STATES LAST BM 03/02/25. INCISIONS CLEAN, DRY, AND INTACT. NO DRAINAGE OR REDNESS OBSERVED. EDUCATION AND DISCHARGE INSTRUCTIONS PROVIDED TO PT AND SIGNIFICANT OTHER. PT AND SIGNIFICANT OTHER DEMONSTRATED UNDERSTANDING OF BOTH. ESCORTED OUT VIA WHEELCHAIR.
== END 2025-03-02 16:00 | disposition home or self-care (01) | DRG 853 ==
LOC: ER 00:52 → SURS 00:53 → ERHOLD 00:53 → SURS 10:52
PROVIDERS: Emergency Medicine; Internal Medicine; Student in an Organized Health Care Education/Training Program; Surgery; ADMIT Family Medicine
PROC: 3E03329 Introduction of Other Anti-infective into Peripheral Vein, Percutaneous Approach (ICD-10-PCS; 2025-02-25)
PROC: 0DTJ4ZZ Resection of Appendix, Percutaneous Endoscopic Approach (ICD-10-PCS; principal; 2025-02-25 11:30)
PROC: 0D9670Z Drainage of Stomach with Drainage Device, Via Natural or Artificial Opening (ICD-10-PCS; 2025-02-27)
PROC: 3E0336Z Introduction of Nutritional Substance into Peripheral Vein, Percutaneous Approach (ICD-10-PCS; 2025-02-27)
DX: A41.9 Sepsis, unspecified organism (principal); K35.211 Acute appendicitis with generalized peritonitis, with perforation and abscess; E87.1 Hypo-osmolality and hyponatremia; K91.89 Other postprocedural complications and disorders of digestive system; K56.7 Ileus, unspecified; F25.9 Schizoaffective disorder, unspecified; G89.29 Other chronic pain; F17.210 Nicotine dependence, cigarettes, uncomplicated; E86.0 Dehydration; M54.50 Low back pain, unspecified; F10.20 Alcohol dependence, uncomplicated; R12 Heartburn; R14.0 Abdominal distension (gaseous); E87.6 Hypokalemia; D69.6 Thrombocytopenia, unspecified; Z98.890 Other specified postprocedural states; Z88.8 Allergy status to other drugs, medicaments and biological substances; Z79.899 Other long term (current) drug therapy; Z79.1 Long term (current) use of non-steroidal anti-inflammatories (NSAID); Z68.36 Body mass index [BMI] 36.0-36.9, adult
CPT/HCPCS: 36415; 71045; 74022; 74177; 80048; 80053; 81001; 82803; 82947; 83605; 83690; 83735; 84100; 84478; 85025; 87040; 87086; 88304; 94760; 96365-59; 96367; 96372; 96375; 96376; 99285-25; A9270; C1751; G0378; J0295; J1171; J1650; J1885; J2405; J2470; J2704; J2765; J3010; J3411; J7030; J7050; J7060; J7070; J7120; Q9967

== ENCOUNTER → 2025-03-19 | Outpatient (CLI) | payer OTHER ==
[~2025-03-19] MED LIST changes: +DIAZ5 PO; +PANT20 PO
[2025-03-19 09:25] LABS: BASOPHILS ABSOLUTE AUTO 0.07 K/mm3 (0.00-0.23); BASOPHILS PERCENT AUTO 1 % (0-2); EOSINOPHILS ABSOLUTE AUTO 0.16 K/mm3 (0.00-0.68); EOSINOPHILS PERCENT AUTO 2 % (0-6); Hematocrit 39.9 % (37.0-53.0); Hemoglobin 13.5 g/dL (13.5-17.5); IMMATURE GRAN ABSOLUTE AUTO 0.02 K/mm3 (0.00-0.10); IMMATURE GRAN PERCENT AUTO 0 % (0-1); LYMPHOCYTES ABSOLUTE AUTO 1.27 K/mm3 (0.84-5.20); LYMPHOCYTES PERCENT AUTO 14 % (21-46); MONOCYTES ABSOLUTE AUTO 0.52 K/mm3 (0.16-1.47); MONOCYTES PERCENT AUTO 6 % (4-13); Mean Corpuscular HGB 29.4 pg (26.0-34.0); Mean Corpuscular HGB Conc 33.8 g/dL (31.5-36.5); Mean Corpuscular Volume 87 fL (80-100); NEUTROPHILS ABSOLUTE AUTO 7.37 K/mm3 (1.96-9.15); NEUTROPHILS PERCENT AUTO 78 % (41-73); Platelet Count 136 K/mm3 (150-400); RDW Coefficient Variation 14.6 % (11.7-14.2); RDW Standard Deviation 46.1 fL (35.1-46.3); Red Blood Cell Count 4.59 M/mm3 (4.30-5.90); White Blood Cell Count 9.41 K/mm3 (4.00-11.30)
[2025-03-19 09:36] LABS: Albumin, Blood 3.8 g/dL (3.4-5.0); Albumin/Globulin Ratio 0.8 (0.8-1.8); Bilirubin, Total 0.5 mg/dL (0.1-1.0); Bun/Creatinine Ratio 12.9 (12.0-20.0); Calcium, Blood 9.3 mg/dL (8.5-10.1); Creatinine, Blood 1.01 mg/dL (0.60-1.20); Globulin, Blood 4.8 g/dL (2.2-4.0); Potassium, Blood 3.8 mmol/L (3.5-5.5); Total Protein, Blood 8.6 g/dL (6.4-8.2)
== END | disposition home or self-care (01) ==
LOC: LAB SHORT 09:20 → LAB 09:20
PROVIDERS: Physician Assistant
DX: J02.9 Acute pharyngitis, unspecified (principal); R07.89 Other chest pain
CPT/HCPCS: 80053; 84484; 85025; 87081

== ENCOUNTER 2025-07-25 15:18 | Inpatient (IN) | payer OTHER ==
[~2025-07-25] VITALS: Ht 180.3 cm; Wt 95.5 kg
[2025-07-25 15:58] LABS: BASOPHILS ABSOLUTE AUTO 0.09 K/mm3 (0.00-0.23); BASOPHILS PERCENT AUTO 1 % (0-2); EOSINOPHILS ABSOLUTE AUTO 0.35 K/mm3 (0.00-0.68); EOSINOPHILS PERCENT AUTO 4 % (0-6); Hematocrit 44.8 % (37.0-53.0); Hemoglobin 15.9 g/dL (13.5-17.5); IMMATURE GRAN ABSOLUTE AUTO 0.05 K/mm3 (0.00-0.10); IMMATURE GRAN PERCENT AUTO 1 % (0-1); LYMPHOCYTES ABSOLUTE AUTO 3.04 K/mm3 (0.84-5.20); LYMPHOCYTES PERCENT AUTO 31 % (21-46); MONOCYTES ABSOLUTE AUTO 0.67 K/mm3 (0.16-1.47); MONOCYTES PERCENT AUTO 7 % (4-13); Mean Corpuscular HGB Conc 35.5 g/dL (31.5-36.5); Mean Corpuscular Volume 86 fL (80-100); NEUTROPHILS ABSOLUTE AUTO 5.69 K/mm3 (1.96-9.15); NEUTROPHILS PERCENT AUTO 58 % (41-73); NRBC ABSOLUTE 0.00 K/mm3 (0.00-0.02); NRBC Auto 0.0 /100 WBC (0.0-0.2); Platelet Count 174 K/mm3 (150-400); RDW Coefficient Variation 14.7 % (11.7-14.2); RDW Standard Deviation 45.9 fL (35.1-46.3)
[2025-07-25 16:19] LABS: Alanine Aminotransfer (ALT/SGP 59.0 U/L (12-78); Albumin, Blood 3.8 g/dL (3.4-5.0); Albumin/Globulin Ratio 0.9 (0.8-1.8); Anion Gap 12.0 mmol/L (3-11); Aspartate Aminotrans (AST/SGOT 43.0 U/L (12-37); Bilirubin, Total 0.4 mg/dL (0.1-1.0); Blood Urea Nitrogen 10.0 mg/dL (8-24); CO2, Blood 23.0 mmol/L (21-32); Calcium, Blood 9.0 mg/dL (8.5-10.1); Chloride, Blood 105.0 mmol/L (98-108); Creatinine, Blood 0.77 mg/dL (0.60-1.20); Globulin, Blood 4.3 g/dL (2.2-4.0); Glucose, Blood 103.0 mg/dL (70-99); Potassium, Blood 3.8 mmol/L (3.5-5.5); Sodium, Blood 136.0 mmol/L (136-145); Total Protein, Blood 8.1 g/dL (6.4-8.2)
[2025-07-25] MEDS ORDERED: NS 1,000 ML IV SCH ×2 (16:40→18:40)
[2025-07-25 18:19] LABS: Ethanol (Alcohol), Blood, Med 92.0 mg/dL; Magnesium, Blood 2.1 mg/dL (1.6-2.4); Phosphorus, Blood 2.8 mg/dL (2.5-4.9)
[2025-07-25] MEDS ORDERED: Ondansetron HCl 2 MG / ML 2ML Vial ONE (18:39)
[2025-07-25] MEDS ORDERED: Ondansetron HCl 2 MG / ML 2ML Vial IV PRN (18:40)
[2025-07-25] MEDS ORDERED: Metoclopramide HCl 5MG / ML 2ML Vial IV PRN (18:40)
[2025-07-25] MEDS ORDERED: LORazepam 2 MG/ML 1ML Injection IV PRN ×3 (18:45→19:40)
[2025-07-25 21:00] VITALS: BP 129/88
[2025-07-25] MEDS ORDERED: Heparin Sodium,Porcine 5,000 UNIT/0.5 ML SDV SC SCH (21:00)
[2025-07-25 22:00] VITALS: BP 91/68
[2025-07-25 22:11] LABS: U Amphetamine Screen DETECTED; U Barbituate Screen Not Detected; U Benzodiazapine Screen DETECTED; U Buprenorphine Screen Not Detected; U Cannabinoids Screen Not Detected; U Cocaine Screen Not Detected; U Methadone Screen Not Detected; U Methamphetamine Screen DETECTED; U Opiates Screen Not Detected; U Oxycodone Screen Not Detected; U Phencyclidine Screen Not Detected
[2025-07-25 23:00] VITALS: BP 121/89
[2025-07-25 23:15] VITALS: BP 112/79
[2025-07-25 23:30] VITALS: BP 118/73
[2025-07-25 23:45] VITALS: BP 123/71
[2025-07-26] VITALS (9 sets, daily range): BP systolic 99–127; BP diastolic 61–86
[2025-07-26 03:39] LABS: BASOPHILS ABSOLUTE AUTO 0.08 K/mm3 (0.00-0.23); BASOPHILS PERCENT AUTO 1 % (0-2); EOSINOPHILS ABSOLUTE AUTO 0.62 K/mm3 (0.00-0.68); EOSINOPHILS PERCENT AUTO 7 % (0-6); Hematocrit 42.6 % (37.0-53.0); Hemoglobin 14.7 g/dL (13.5-17.5); IMMATURE GRAN ABSOLUTE AUTO 0.03 K/mm3 (0.00-0.10); IMMATURE GRAN PERCENT AUTO 0 % (0-1); LYMPHOCYTES ABSOLUTE AUTO 2.46 K/mm3 (0.84-5.20); LYMPHOCYTES PERCENT AUTO 28 % (21-46); MONOCYTES ABSOLUTE AUTO 0.57 K/mm3 (0.16-1.47); MONOCYTES PERCENT AUTO 7 % (4-13); Mean Corpuscular HGB Conc 34.5 g/dL (31.5-36.5); Mean Corpuscular Volume 86 fL (80-100); NEUTROPHILS ABSOLUTE AUTO 5.01 K/mm3 (1.96-9.15); NEUTROPHILS PERCENT AUTO 57 % (41-73); NRBC ABSOLUTE 0.00 K/mm3 (0.00-0.02); NRBC Auto 0.0 /100 WBC (0.0-0.2); Platelet Count 141 K/mm3 (150-400); RDW Coefficient Variation 14.8 % (11.7-14.2); RDW Standard Deviation 46.4 fL (35.1-46.3)
[2025-07-26 04:06] LABS: Magnesium, Blood 2.0 mg/dL (1.6-2.4)
[2025-07-26 04:07] LABS: Alanine Aminotransfer (ALT/SGP 52.0 U/L (12-78); Albumin, Blood 3.4 g/dL (3.4-5.0); Albumin/Globulin Ratio 0.9 (0.8-1.8); Anion Gap 9.0 mmol/L (3-11); Aspartate Aminotrans (AST/SGOT 37.0 U/L (12-37); Bilirubin, Total 0.5 mg/dL (0.1-1.0); Blood Urea Nitrogen 12.0 mg/dL (8-24); CO2, Blood 23.0 mmol/L (21-32); Calcium, Blood 8.6 mg/dL (8.5-10.1); Chloride, Blood 106.0 mmol/L (98-108); Creatinine, Blood 0.8 mg/dL (0.60-1.20); Globulin, Blood 3.7 g/dL (2.2-4.0); Glucose, Blood 105.0 mg/dL (70-99); Potassium, Blood 4.0 mmol/L (3.5-5.5); Sodium, Blood 134.0 mmol/L (136-145); Total Protein, Blood 7.1 g/dL (6.4-8.2)
--- NOTE | 2025-07-26 06:38 | NUR ---
SHIFT SUMMERY PT ADMITTED FROM ER EARLIER IN THE NIGHT. ETOH W/DRAWAL, MEDICATED PER EMAR. PT HAS BEEN COMPLIANT W/CARE. HE HAS BEEN SINUS ARRYTHMIA ON THE FINAL INSPECTOR MOTORCYLES. BP HAS BEEN WNL. HE HAS HAD NO COMPLAINTS OF PAIN. HE IS ON 2LNC W/OXYGEN SAT > 90%. HE HAS AN OCCASIONAL CHRONIC COUGH. HE HAS HAD SOME CONFUSION BUT IS EASY TO REORIENT. AFEBRILE.
[2025-07-26] MEDS ORDERED: Multivitamins 1 Tab PO SCH (09:00)
[2025-07-26] MEDS ORDERED: Folic Acid 1 MG TAB PO SCH (09:00)
--- NOTE | 2025-07-26 09:22 | NUR ---
ASSUMPTION OF CARE RECEIVED REPORT FROM NOC NURSE. PT COOPERATIVE AND AGREEABLE. REPORTS TREMORS, ITCHING, AND ANXIETY. SWEAT NOTED ON HIS FOREHEAD. AUSCULTATED WHEEZES AND DIMINISHED LUNG SOUNDS T/O. PT A&OX4. DENIES SOB AND CHEST PAIN. CALL LIGHT WITHIN REACH.
--- NOTE | 2025-07-26 18:15 | NUR ---
SHIFT SUMMARY PT A&0X4, DENIES N/V, AND HAS BEEN COOPERATIVE T/O CARE. PT REPORTS SX OF ETOH WITHDRAWAL, PRIMARILY TREMORS, SWEATING, AND ITCHING AND NUMBNESS IN EXTREMITIES APPROPRIATELY, HAS BEEN MANAGED WITH LIBRIUM AND PT REPORTS GREAT RESULTS USING LIBRIUM. PT HAS BEEN IN SINUS ARRYTHMIA WITH PVCS WITH A RATE OF 70S-110S, DENIES CHEST PAIN. PT IS ON RA WHILE AWAKE AND 2L NC WHILE SLEEPING D/T DROP IN SATS INTO 82-88%. PT AMBULATES TO TOILET FOR BM AND USES URINAL. CALL LIGHT WITHIN REACH.
--- NOTE | 2025-07-26 20:00 | NUR ---
ASSUMPTION OF CARE RECEIVED REPORT FROM DAY NURSE, PT IS REPORTING ITCHING/CRAWLING SKIN SENSATION, ANXIETY AND TREMORS. DENIES CHEST PAIN OR SOB, CONTINOUS CARDIAC MONITORING IN PLACE, SHOWING SINUS ARRYTHMIA WITH FREQUENT PVCS AND A RATE IN THE MID 70S, SATS >92% ON RA. AMBULATES INDEPENDENTLY TO TOILET FOR BM AND URINAL AT BEDSIDE. CALL LIGHT WITHIN REACH.
--- NOTE | 2025-07-26 22:16 | NUR ---
PT DESATTING DURING SLEEP TO THE MID TO HIGH 80'S, WILL IMPROVE TO LOW 90S WITH MOVEMENT AND UPON AWAKENING. PT DECLINES TO WEAR SUPPLEMENTAL OXYGEN DURING SLEEP.
[2025-07-27] VITALS (7 sets, daily range): BP systolic 101–128; BP diastolic 75–90
[2025-07-27 05:45] LABS: BASOPHILS ABSOLUTE AUTO 0.06 K/mm3 (0.00-0.23); BASOPHILS PERCENT AUTO 1 % (0-2); EOSINOPHILS ABSOLUTE AUTO 0.55 K/mm3 (0.00-0.68); EOSINOPHILS PERCENT AUTO 8 % (0-6); Hematocrit 43.7 % (37.0-53.0); Hemoglobin 15.1 g/dL (13.5-17.5); IMMATURE GRAN ABSOLUTE AUTO 0.02 K/mm3 (0.00-0.10); IMMATURE GRAN PERCENT AUTO 0 % (0-1); LYMPHOCYTES ABSOLUTE AUTO 2.12 K/mm3 (0.84-5.20); LYMPHOCYTES PERCENT AUTO 29 % (21-46); MONOCYTES ABSOLUTE AUTO 0.48 K/mm3 (0.16-1.47); MONOCYTES PERCENT AUTO 7 % (4-13); Mean Corpuscular HGB Conc 34.6 g/dL (31.5-36.5); Mean Corpuscular Volume 88 fL (80-100); NEUTROPHILS ABSOLUTE AUTO 3.98 K/mm3 (1.96-9.15); NEUTROPHILS PERCENT AUTO 55 % (41-73); NRBC ABSOLUTE 0.00 K/mm3 (0.00-0.02); NRBC Auto 0.0 /100 WBC (0.0-0.2); Platelet Count 127 K/mm3 (150-400); RDW Coefficient Variation 14.7 % (11.7-14.2); RDW Standard Deviation 47.3 fL (35.1-46.3)
[2025-07-27 06:05] LABS: Alanine Aminotransfer (ALT/SGP 51.0 U/L (12-78); Albumin, Blood 3.5 g/dL (3.4-5.0); Albumin/Globulin Ratio 0.9 (0.8-1.8); Anion Gap 6.0 mmol/L (3-11); Aspartate Aminotrans (AST/SGOT 33.0 U/L (12-37); Bilirubin, Total 0.4 mg/dL (0.1-1.0); Blood Urea Nitrogen 12.0 mg/dL (8-24); CO2, Blood 24.0 mmol/L (21-32); Calcium, Blood 8.7 mg/dL (8.5-10.1); Chloride, Blood 108.0 mmol/L (98-108); Creatinine, Blood 0.69 mg/dL (0.60-1.20); Globulin, Blood 4.1 g/dL (2.2-4.0); Glucose, Blood 119.0 mg/dL (70-99); Potassium, Blood 4.0 mmol/L (3.5-5.5); Sodium, Blood 134.0 mmol/L (136-145); Total Protein, Blood 7.6 g/dL (6.4-8.2)
--- NOTE | 2025-07-27 06:11 | NUR ---
SHIFT SUMMARY PT ABLE TO REST THROUGH MOST OF THE NIGHT, CONTINUES TO SHOW SINUS ARRYTHMIA ON MONITOR WITH FREQUENT PVCS, HR IN THE 60S-70S. O2 SAT IN THE MID 90S, WHILE SLEEPING WILL DESAT TO THE MID 80S THEN QUICKLY RETURN TO BASELINE, DECLINED TO WEAR SUPPLMENTAL 02 WHILE SLEEPING. AMBULATES INDEPENDENTLY TO TOILET FOR BM AND USES URINAL BEDSIDE WITHOUT ASSISTANCE. REPORTED MODERATE ITCHING/SKIN CRAWLING SENSATION DURING SHIFT AND WAS MEDICATED, SEE EMAR. RESTING IN BED AT THIS TIME, DENIES UNMET NEEDS, CALL LIGHT WITHIN REACH.
--- NOTE | 2025-07-27 11:47 | NUR ---
REASSESSMENT PT'S CIWAA HAS BEEN 7-9, MEDICATING WITH LIBRIUM AND ATIVAN. PT TOOK A SOWER THIS MORNING AND WAS ABLE TO WALK BACK TO HIS ROOM FROM THE SHOWER WITH MINIMAL ASSISTANCE. LUNGS REMAIN CLEAR, ON RA WITH SPO2 ABOVE 90. SR, MAP ABOVE 65, VOIDING USING THE URINAL, EATING INDEPENDENTLY. PT STATES HE PLANS ON CALLING [facility] TODAY TO SET UP CARE FOR AFTER HOSPITALIZATION. HE ALSO SAID HE IS GOING TO CALL HIS SPONSOR AND LET HIM KNOW THAT HE IS STAYING ANOTHER NIGHT.
--- NOTE | 2025-07-27 17:21 | NUR ---
SHIFT SUMMARY PT HAS MAINTAINED A CIWAA FROM 5-9 THIS SHIFT. MEDICATING WITH LIBRIUM AND ATIVAN. PT IS ALERT, ORIENTED TO PERSON, PLACE, MONTH AND YEAR. POLITE AND COOPERATIVE. LUNGS ARE CLEAR, RA, SR, MAP ABOVE 65, VOIDING USING THE URINAL, EATING 100% OF MEALS.
[2025-07-28] VITALS: BP 111/72
[2025-07-28 04:00] VITALS: BP 90/66
--- NOTE | 2025-07-28 06:11 | NUR ---
SHIFT SUMMARY: NO ACUTE CHANGES T/O THE NIGHT. PT REMAINS A&O TO SELF,YEAR/MONTH, PLACE, AND SITUATION. PT ABLE TO REPOSITION SELF FOR COMFORT. AFEBRILE. COOPERATIVE W/CARE. CIWA RANGED FROM 3-9. PT MEDICATED ACCORDING TO ORDERS. PT SLEPT MOST OF THE NIGHT. PT SBP REMAINS STABLE. MAP>65. HR 70S-80S, SINUS W/ MULTIPLE PVCS. PT ON RA. SATS>90%, PT DOES HAVE EPISODES OF DE-SATING INTO THE MID 80S WHEN ASLEEP -CONTINUES TO REFUSE OXYGEN. ABD SOFT, BT ACTIVE X4. PT HAD ONE EPISODE OF EMESIS THIS MORNING. ZOFRAN GIVEN PER EMAR. OTHERWISE, NO C/O. PT USING URINAL TO VOID. ATTENDS IN PLACE. PIV TO LFA, SALINE LOCKED.
[2025-07-28 06:52] LABS: BASOPHILS ABSOLUTE AUTO 0.05 K/mm3 (0.00-0.23); BASOPHILS PERCENT AUTO 1 % (0-2); EOSINOPHILS ABSOLUTE AUTO 0.44 K/mm3 (0.00-0.68); EOSINOPHILS PERCENT AUTO 5 % (0-6); Hematocrit 45.8 % (37.0-53.0); Hemoglobin 15.4 g/dL (13.5-17.5); IMMATURE GRAN ABSOLUTE AUTO 0.03 K/mm3 (0.00-0.10); IMMATURE GRAN PERCENT AUTO 0 % (0-1); LYMPHOCYTES ABSOLUTE AUTO 2.67 K/mm3 (0.84-5.20); LYMPHOCYTES PERCENT AUTO 32 % (21-46); MONOCYTES ABSOLUTE AUTO 0.59 K/mm3 (0.16-1.47); MONOCYTES PERCENT AUTO 7 % (4-13); Mean Corpuscular HGB Conc 33.6 g/dL (31.5-36.5); Mean Corpuscular Volume 87 fL (80-100); NEUTROPHILS ABSOLUTE AUTO 4.58 K/mm3 (1.96-9.15); NEUTROPHILS PERCENT AUTO 55 % (41-73); NRBC ABSOLUTE 0.00 K/mm3 (0.00-0.02); NRBC Auto 0.0 /100 WBC (0.0-0.2); Platelet Count 156 K/mm3 (150-400); RDW Coefficient Variation 14.6 % (11.7-14.2); RDW Standard Deviation 47.3 fL (35.1-46.3)
[2025-07-28 07:06] LABS: Alanine Aminotransfer (ALT/SGP 51.0 U/L (12-78); Albumin, Blood 3.7 g/dL (3.4-5.0); Albumin/Globulin Ratio 0.9 (0.8-1.8); Anion Gap 9.0 mmol/L (3-11); Aspartate Aminotrans (AST/SGOT 35.0 U/L (12-37); Bilirubin, Total 0.4 mg/dL (0.1-1.0); Blood Urea Nitrogen 15.0 mg/dL (8-24); CO2, Blood 22.0 mmol/L (21-32); Calcium, Blood 8.8 mg/dL (8.5-10.1); Chloride, Blood 108.0 mmol/L (98-108); Creatinine, Blood 0.77 mg/dL (0.60-1.20); Globulin, Blood 4.2 g/dL (2.2-4.0); Glucose, Blood 114.0 mg/dL (70-99); Potassium, Blood 4.2 mmol/L (3.5-5.5); Sodium, Blood 135.0 mmol/L (136-145); Total Protein, Blood 7.9 g/dL (6.4-8.2)
[2025-07-28 07:34] VITALS: BP 109/79
[2025-07-28 11:07] VITALS: BP 122/89
--- NOTE | 2025-07-28 12:03 | NUR ---
AMA PT REQUESTS TO LEAVE AMA DUE TO PRE-OP APPOINTMENT SCHEDULED IN [place] TOMORROW MORNING. PT ENCOURAGED TO STAY BUT STILL WOULD LIKE TO LEAVE. DR HAM NOTIFIED AND NO PLAN TO DISCHARGE TODAY. PT PROVIDED EDUCATION REGARDING RISKS OF LEAVING AMA, PROVIDED AMA FORM WHICH WAS SIGNED AND PROVIDED COPY TO PT. PT CALLED HIS SPONSOR FOR A RIDE HOME. PT DRESSED SELF AND AMBULATED OUT OF DEPARTMENT WITH STEADY GAIT. PT STS HE IS GOING TO SECURITY OFFICE TO CASE MAKER BELONGINGS. SECURITY NOTIFIED. HOSPITALIST NOTIFIED AFTER PT LEFT DEPARTMENT.
--- NOTE | 2025-07-28 12:43 | NUR ---
SHIFT SUMMARY PATIENT ALERT, ABLE TO FOLLOW COMMANDS AND MAKE NEEDS KNOWN, PATIENT MILDLY ANXIOUS THIS SHIFT, CIWA 8 OR LESS, MEDICATED PER EMAR. VSS, SPO2 >90% ON RA, PATIENT DENIES CHEST PAIN OR PRESSURE. PATIENT REPORTS MILD NAUSEA WITH NO EPISODES OF EMESIS. PATIENT URINATING WITH URINAL INDEPENDENTLY, DENIES PAIN WITH URINATION. PATIENT IS A SBA IN THE ROOM FOR LINE AND CORD MANAGEMENT. PATIENT LEFT AMA THIS SHIFT, SEE NURSE AMA NOTE.
== END 2025-07-28 12:00 | disposition left against medical advice (07) | DRG 894 ==
LOC: ER 15:18 → ICUE 15:19 → PCU 15:19 → ICUE 20:35
PROVIDERS: Emergency Medicine; Family Medicine; Internal Medicine; Nurse Practitioner Acute Care; Registered Nurse; ADMIT Student in an Organized Health Care Education/Training Program
PROC: HZ2ZZZZ Detoxification Services for Substance Abuse Treatment (ICD-10-PCS; principal; 2025-07-25)
DX: F10.239 Alcohol dependence with withdrawal, unspecified (principal); F20.0 Paranoid schizophrenia; E87.1 Hypo-osmolality and hyponatremia; F17.210 Nicotine dependence, cigarettes, uncomplicated; Y90.4 Blood alcohol level of 80-99 mg/100 ml; K70.30 Alcoholic cirrhosis of liver without ascites; F15.90 Other stimulant use, unspecified, uncomplicated; D69.6 Thrombocytopenia, unspecified; Z85.46 Personal history of malignant neoplasm of prostate; E66.9 Obesity, unspecified; Z53.29 Procedure and treatment not carried out because of patient's decision for other reasons
CPT/HCPCS: 36415; 71046; 80053; 80320; 83690; 83735; 84100; 84484; 85025; 93005; 93010; 96365; 96367; 96375; 99285-25; A9270; G0378; J1644; J2060; J2405; J2560; J3411; J7030

== ENCOUNTER 2025-10-14 16:34 | Emergency (ER) | payer OTHER ==
[~2025-10-14] VITALS: Ht 172.7 cm; Wt 104.3 kg
[2025-10-14 17:02] VITALS: BP 118/95
[2025-10-14] MEDS ORDERED: Folic Acid 1 MG TAB PO ONE (17:15)
[2025-10-14] MEDS ORDERED: NS 1,000 ML IV SCH (17:15)
== END 2025-10-14 17:55 | disposition left against medical advice (07) ==
LOC: ER 16:34
DX: M25.512 Pain in left shoulder (principal); F17.210 Nicotine dependence, cigarettes, uncomplicated; F15.90 Other stimulant use, unspecified, uncomplicated; Z53.29 Procedure and treatment not carried out because of patient's decision for other reasons
CPT/HCPCS: 99283